=== PATIENT | male | born 1990 | race Caucasian/White ===

== ENCOUNTER 2020-09-27 14:44 | Inpatient (IN) | payer OTHER ==
[2020-09-27] MEDS ORDERED: NICOTINE POLACRILEX 2 MG GUM BUC PRN (18:45)
[2020-09-27] MEDS ORDERED: hydrOXYzine PAMOATE 25 MG CAPSULE (FP) PO PRN (18:45)
[2020-09-27] MEDS ORDERED: MAGNESIUM CITRATE 300 ML BOTTLE PO PRN (18:45)
[2020-09-27] MEDS ORDERED: IBUPROFEN 400 MG TABLET (FP) PO PRN (18:45)
[2020-09-27] MEDS ORDERED: ACETAMINOPHEN 325 MG TABLET (FP) PO PRN ×2 (18:45)
[2020-09-27] MEDS ORDERED: METHOCARBAMOL 500 MG TABLET PO PRN (18:45)
[2020-09-27] MEDS ORDERED: ONDANSETRON *ODT* 4 MG TABLET SL PRN (18:45)
[2020-09-27] MEDS ORDERED: MENTHOL/PHENOL 1 EACH UD MM PRN (18:45)
[2020-09-27] MEDS ORDERED: MAGNESIUM HYDROX 2400MG/30ML ORAL SUSPENSION 30 ML CUP PO PRN (18:45)
[2020-09-27] MEDS ORDERED: MAG HYDROX/AL HYDROX/SIMETH 30 ML UNIT-DOSE CUP PO PRN (18:45)
[2020-09-27] MEDS ORDERED: PERMETHRIN 5% TOPICAL CREAM 60 GM TUBE TP ONE (18:49)
[2020-09-27] MEDS ORDERED: diazePAM 5 MG TABLET PO PRN (18:51)
[2020-09-27 18:59] VITALS: BMI 18.3
[2020-09-27] MEDS ORDERED: diazePAM 5 MG TABLET PO ONE (19:15)
[2020-09-27] MEDS ORDERED: diphenhydrAMINE HCL 25 MG CAPSULE (FP) PO ONE (19:56)
[2020-09-27] MEDS ORDERED: CALAMINE 8% TOPICAL LOTION 177 ML BOTTLE TP PRN (19:56)
[2020-09-27] MEDS: THIAMINE HCL 100 MG TABLET (FP) PO SCH (23:26)
[2020-09-27] MEDS: MELATONIN 5 MG TABLETS PO SCH (23:26)
[2020-09-27] MEDS: diazePAM 5 MG TABLET PO SCH (23:27)
[2020-09-28] MEDS: diazePAM 5 MG TABLET PO SCH ×4 (06:40→22:35)
[2020-09-28] MEDS ORDERED: PNEUMOC 13-VAL CONJ-DIP CRM/PF 0.5 ML DISP.SYRIN IM ONE (10:00)
[2020-09-28] MEDS: PRENATAL VITAMINS W/ FOLIC ACID TABLET (FP) PO SCH (10:48)
[2020-09-28] MEDS: BISMUTH SUBSALICYLATE 524 MG/30 ML PO PRN (10:51)
[2020-09-28 11:47] LABS: HEMATOCRIT 46.6 % (35.4-49); HEMOGLOBIN 15.4 GM/dL (11.7-16.9); MCH 31.8 pg (25.7-33.7); MCHC 33.1 g/dl (32.0-35.9); MEAN PLT VOLUME 7.9 fl (7.5-11.1); PLATELET COUNT 230 10^3/uL (134-434); RBC 4.85 M/mm3 (4.00-5.60); RDW 13.9 % (11.9-15.9); WHITE BLOOD COUNT 4.8 K/mm3 (4.0-10.0)
[2020-09-28] MEDS ORDERED: PNEUMOCOCCAL 23 VACCINE 0.5 ML VIAL IM ONE (12:00)
[2020-09-28 12:04] LABS: CALCIUM 9.2 mg/dL (8.5-10.1)
[2020-09-28 12:05] LABS: BLOOD UREA NITROGEN 14.3 mg/dL (7-18)
[2020-09-28 12:08] LABS: CREATININE 0.7 mg/dL (0.55-1.3)
[2020-09-28 12:09] LABS: TOT PROT 7.9 g/dl (6.4-8.2)
[2020-09-28] MEDS: THIAMINE HCL 100 MG TABLET (FP) PO SCH (22:35)
[2020-09-28] MEDS: MELATONIN 5 MG TABLETS PO SCH (22:35)
[2020-09-29] MEDS: diazePAM 5 MG TABLET PO SCH ×2 (07:00→14:23)
[2020-09-29] MEDS: PRENATAL VITAMINS W/ FOLIC ACID TABLET (FP) PO SCH (10:08)
[2020-09-29 10:30] LABS: SGOT/AST 148 U/L (15-37); SGPT/ALT 134 U/L (13-61)
[2020-09-29] MEDS: BISMUTH SUBSALICYLATE 524 MG/30 ML PO PRN (15:22)
[2020-09-29 15:53] VITALS: BP 99/63; PULSE 92; TEMP 97.7
[2020-09-30] MEDS ORDERED: diazePAM 5 MG TABLET PO SCH (06:00)
[2020-10-01] MEDS ORDERED: diazePAM 5 MG TABLET PO ONE (06:00)
== END 2020-09-29 16:17 | disposition short-term general hospital (02) | DRG 775 ==
LOC: YASAS 14:44 → Y3N 19:03
PROVIDERS: ADMIT Allergy & Immunology; ATTEND Allergy & Immunology
PROC: HZ2ZZZZ Detoxification Services for Substance Abuse Treatment (ICD-10-PCS; principal; 2020-09-27)
DX: F10.230 Alcohol dependence with withdrawal, uncomplicated (principal); F15.20 Other stimulant dependence, uncomplicated; F17.210 Nicotine dependence, cigarettes, uncomplicated; R07.89 Other chest pain; R06.02 Shortness of breath; R74.8 Abnormal levels of other serum enzymes; R74.01 Elevation of levels of liver transaminase levels; L50.0 Allergic urticaria
CPT/HCPCS: 36415; 80053; 84450; 84460; 85027; 86780; 90732; C9803; G0009; U0003; U0005

== ENCOUNTER 2020-09-29 16:30 | Emergency (ER) | payer OTHER ==
[2020-09-29] MEDS ORDERED: ASPIRIN 81 MG CHEWABLE TABLETS PO ONE (16:57)
[2020-09-29] MEDS ORDERED: ASPIRIN 81 MG CHEWABLE TABLETS ONE (17:04)
[2020-09-29 17:13] VITALS: BMI 19.6
[2020-09-29 17:21] LABS: BASO % 0.6 % (0-2.0); EOS % 1.9 % (0-4.5); HEMATOCRIT 41.3 % (35.4-49); LYMPH % 30.7 % (8-40); MCH 32.2 pg (25.7-33.7); MCHC 33.9 g/dl (32.0-35.9); MEAN PLT VOLUME 7.5 fl (7.5-11.1); MONO % 9.5 % (3.8-10.2); NEUT % 57.3 % (42.8-82.8); PLATELET COUNT 206 10^3/uL (134-434); RBC 4.35 M/mm3 (4.00-5.60); WHITE BLOOD COUNT 4.6 K/mm3 (4.0-10.0)
[2020-09-29 17:35] LABS: CHLORIDE 101 mmol/L (98-107); SODIUM 137 mmol/L (136-145)
[2020-09-29 17:38] LABS: ALBUMIN 3.5 g/dl (3.4-5.0); ANION GAP 7 MMOL/L (8-16); CALCIUM 8.6 mg/dL (8.5-10.1); CO2 29 mmol/L (21-32); GLUCOSE,RANDOM 112 mg/dL (74-106); MAGNESIUM 1.8 mg/dL (1.8-2.4)
[2020-09-29 17:39] LABS: BLOOD UREA NITROGEN 13.3 mg/dL (7-18)
[2020-09-29] MEDS ORDERED: ATORVASTATIN CA 80 MG TABLET (FP) PO ONE (17:39)
[2020-09-29 17:41] LABS: CHOLESTEROL 178 mg/dL (50-200); CREATININE 0.9 mg/dL (0.55-1.3); SGPT/ALT 170 U/L (13-61)
[2020-09-29 17:42] LABS: SGOT/AST 211 U/L (15-37); TRIGLYCERIDES 93 mg/dL (0-150)
[2020-09-29 17:43] LABS: BILIRUBIN,TOTAL 0.4 mg/dL (0.2-1); HDL CHOLESTEROL 76 mg/dL (40-60); LDL CHOLESTEROL (ONLY SJRH) 84 mg/dL (5-100)
[2020-09-29 17:44] LABS: ALK PHOS 93 U/L (45-117)
[2020-09-29 18:44] VITALS: BP 105/68; PULSE 92; TEMP 98.1
== END 2020-09-29 18:10 | disposition short-term general hospital (02) ==
LOC: JER 16:30
DX: T78.2XXA Anaphylactic shock, unspecified, initial encounter (principal); T44.5X5A Adverse effect of predominantly beta-adrenoreceptor agonists, initial encounter; I21.3 ST elevation (STEMI) myocardial infarction of unspecified site; I25.9 Chronic ischemic heart disease, unspecified
CPT/HCPCS: 36415; 71045-TC-FY; 80053; 80061; 82550; 82553; 83721; 83735; 83880; 84484; 85025; 93005; 93010; 99285-25